=== PATIENT | male | born 1955 | race Hispanic/Latino ===

== ENCOUNTER 2017-09-27 02:12 | Observation (INO) | payer MEDICARE ==
[~2017-09-27] VITALS: Ht 165.1 cm; Wt 71.2 kg
[~2017-09-27 02:12] MED LIST: HYDR-4060 PO
[2017-09-27 02:44] LABS: BASOPHILS % (AUTO) 0.2 % (0.0-5.0); EOSINOPHILS % (AUTO) 0.4 % (0.0-8.0); HEMATOCRIT 40.5 % (42-54); LYMPHOCYTES % (AUTO) 7.9 % (21.0-51.0); MEAN CORPUSCULAR HEMOGLOBIN 30.7 pg (27.0-33.0); MEAN CORPUSCULAR HGB CONC 33.4 g/dL (32.0-36.0); MEAN CORPUSCULAR VOLUME 91.8 fL (79-99); MONOCYTES % (AUTO) 7.4 % (3.0-13.0); NEUTROPHILS % (AUTO) 84.1 % (40.0-77.0); PLATELET COUNT (AUTO) 265 K/uL (130-400); RED BLOOD CELL COUNT(AUTO) 4.41 MIL/uL (4.50-6.20); RED CELL DISTRIBUTION WIDTH 13.5 % (11.0-15.5); WHITE BLOOD COUNT (AUTO) 7.9 K/uL (4.8-10.8)
[2017-09-27 02:55] LABS: CREATININE 1.1 mg/dL (0.5-1.5); POTASSIUM 3.3 mmol/L (3.5-5.1)
[2017-09-27] MEDS ORDERED: ONDANSETRON HCL MDV 20ML 2 MG/ML VIAL ONE ×2 (02:55→04:37)
[2017-09-27] MEDS ORDERED: SODIUM CHLORIDE 0.9% 1000ML 1,000 ML IV ONE ×2 (02:55→09:50)
[2017-09-27] MEDS ORDERED: MORPHINE SULFATE 4 MG/1ML SYG ONE (02:56)
[2017-09-27 03:00] LABS: ALBUMIN 3.6 g/dL (3.5-5.0); BILIRUBIN,TOTAL 0.7 mg/dL (0.2-1.0); TOTAL PROTEIN, SERUM 6.8 g/dL (6.0-8.3)
[2017-09-27 03:21] LABS: APPEARANCE,URINE Clear (CLEAR); BILIRUBIN,URINE Negative (NEGATIVE); COLOR,URINE Yellow (YELLOW); GLUCOSE, URINE (UA) Negative (NEGATIVE); KETONES,URINE Negative (NEGATIVE); LEUKOCYTE ESTERASE ,URINE Negative (NEGATIVE); NITRATE,URINE Negative (NEGATIVE); OCCULT BLOOD,URINE Negative (NEGATIVE); PROTEIN,URINE Negative (NEGATIVE)
[2017-09-27 03:22] LABS: INR 2.07 (0.85-1.15); PARTIAL THROMBOPLASTIN TIME 34.6 SEC (26.3-35.5); PROTHROMBIN TIME 21.4 SEC (9.6-11.6)
[2017-09-27 03:55] LABS: OCCULT BLOOD STOOL SINGLE ONLY POSITIVE (NEGATIVE)
[2017-09-27] MEDS ORDERED: MORPHINE SULFATE 8 MG/ML VIAL ONE (04:53)
[2017-09-27] MEDS ORDERED: HYDRALAZINE HCL 20 MG/ML VIAL IV PRN (07:00)
[2017-09-27] MEDS ORDERED: ONDANSETRON HCL 4 MG/2 ML VIAL IV PRN (07:00)
[2017-09-27] MEDS ORDERED: ACETAMINOPHEN 325 MG TAB PO PRN ×2 (07:00)
[2017-09-27] MEDS ORDERED: POTASSIUM CHLORIDE 10% ELIXIR 20 MEQ/15 ML UDCUP PO PRN ×2 (07:00)
[2017-09-27] MEDS ORDERED: POTASSIUM CHLORIDE 20MEQ/100ML 100 ML IV PRN ×2 (07:00)
[2017-09-27] MEDS ORDERED: POTASSIUM CHLORIDE 20 MEQ ERTAB PO PRN ×2 (07:00)
[2017-09-27] MEDS ORDERED: LIDOCAINE HCL-MPF 1% 2ML VIAL IVP PRN ×2 (07:00)
[2017-09-27] MEDS ORDERED: MORPHINE SULFATE 2 MG/ML 1ML SYG IV PRN (07:00)
[2017-09-27] MEDS ORDERED: METRONIDAZOLE 500MG/100ML BAG 100 ML ONE (07:16)
[2017-09-27] MEDS ORDERED: DOXYCYCLINE HYCLATE 100 MG TABLET PO ONE (07:28)
[2017-09-27] MEDS ORDERED: CEFTRIAXONE SODIUM 1 GM ONE (07:28)
[2017-09-27] MEDS ORDERED: KETOROLAC TROMETHAMINE 30MG/ML ONE (07:29)
[2017-09-27] MEDS ORDERED: SODIUM CHLORIDE 0.9% 100 ML IV ONE (07:29)
[2017-09-27] MEDS ORDERED: FAMOTIDINE/PF 20 MG/2 ML VIAL IV ONE (09:50)
[2017-09-27] MEDS ORDERED: POTASSIUM CHLORIDE 20 MEQ ERTAB PO ONE ×3 (09:50→16:10)
[2017-09-27] MEDS ORDERED: LOPERAMIDE HCL 2 MG CAP PO PRN (11:00)
[2017-09-27] MEDS ORDERED: WARF5TAB76 PO (12:31)
[2017-09-27] MEDS ORDERED: ACETAMINOPHEN 325 MG TAB ONE (14:06)
[2017-09-27] MEDS ORDERED: WARFARIN SODIUM 5 MG TAB ONE (14:12)
[2017-09-27] MEDS: SODIUM CHLORIDE 0.9% 1000ML 1,000 ML IV SCH (19:29)
[2017-09-27 19:45] VITALS: BP 135/75
[2017-09-27] MEDS: FAMOTIDINE/PF 20 MG/2 ML VIAL IV SCH (20:48)
[2017-09-27] MEDS ORDERED: TEMA30CA PO (21:01)
[2017-09-27] MEDS ORDERED: DOCU100T PO (21:01)
[2017-09-27] MEDS: METRONIDAZOLE 500MG/100ML BAG 100 ML IV SCH (22:05)
[2017-09-27 23:55] VITALS: BP 115/59
[2017-09-28 04:00] VITALS: BP 105/56
[2017-09-28 06:03] LABS: HEMATOCRIT 37.9 % (42-54); MEAN CORPUSCULAR HEMOGLOBIN 32.5 pg (27.0-33.0); MEAN CORPUSCULAR HGB CONC 35.1 g/dL (32.0-36.0); MEAN CORPUSCULAR VOLUME 92.5 fL (79-99); PLATELET COUNT (AUTO) 257 K/uL (130-400); RED CELL DISTRIBUTION WIDTH 13.7 % (11.0-15.5)
[2017-09-28] MEDS: SODIUM CHLORIDE 0.9% 1000ML 1,000 ML IV SCH (06:07)
[2017-09-28 06:08] LABS: INR 2.39 (0.85-1.15); PARTIAL THROMBOPLASTIN TIME 35.7 SEC (26.3-35.5); PROTHROMBIN TIME 24.7 SEC (9.6-11.6)
[2017-09-28 06:11] LABS: POTASSIUM 4.1 mmol/L (3.5-5.1)
[2017-09-28] MEDS: METRONIDAZOLE 500MG/100ML BAG 100 ML IV SCH (06:22)
[2017-09-28 08:00] VITALS: BP 122/68
[2017-09-28] MEDS ORDERED: MORPHINE SULFATE 4 MG/1ML SYG ONE ×2 (08:18→15:38)
[2017-09-28] MEDS: FAMOTIDINE/PF 20 MG/2 ML VIAL IV SCH (08:49)
[2017-09-28 12:16] VITALS: BP 116/64
[2017-09-28 16:18] VITALS: BP 111/60
[2017-09-28] MEDS ORDERED: WARFARIN SODIUM 5 MG TAB PO SCH (17:00)
== END 2017-09-28 16:50 | disposition home or self-care (01) ==
LOC: EDH 02:12 → EDHIP 06:40 → 4CH 19:45
PROVIDERS: ADMIT Internal Medicine; ATTEND Internal Medicine
DX: K52.9 Noninfective gastroenteritis and colitis, unspecified (principal); D68.59 Other primary thrombophilia; E87.6 Hypokalemia; E86.0 Dehydration; Z90.79 Acquired absence of other genital organ(s); Z85.46 Personal history of malignant neoplasm of prostate; Z86.718 Personal history of other venous thrombosis and embolism; Z79.01 Long term (current) use of anticoagulants
CPT/HCPCS: 36415 ×2; 74176; 80048; 80053; 81003; 82150; 82270; 83690; 85025; 85027; 85610 ×2; 85730 ×2; 87046; 87177; 87205; 87324; 87507; 93005; 96365; 96366; 96375; 96376; 99285; G0378 ×34; J0696; J1885; J2270 ×4; J3490 ×6; J7030 ×3

== ENCOUNTER 2019-05-05 13:18 | Emergency (ER) | payer MEDICARE ==
[~2019-05-05 13:18] MED LIST changes: +DOCU100T PO; +TEMA30CA PO; +WARF5TAB76 PO
[2019-05-05 13:49] LABS: BASOPHILS % (AUTO) 0.3 % (0.0-5.0); EOSINOPHILS % (AUTO) 1.1 % (0.0-8.0); HEMATOCRIT 39.7 % (42-54); LYMPHOCYTES % (AUTO) 7.7 % (21.0-51.0); MEAN CORPUSCULAR HEMOGLOBIN 30.2 pg (27.0-33.0); MEAN CORPUSCULAR HGB CONC 33.5 g/dL (32.0-36.0); MONOCYTES % (AUTO) 6.6 % (3.0-13.0); NEUTROPHILS % (AUTO) 83.2 % (40.0-77.0); PLATELET COUNT (AUTO) 297 K/uL (130-400); RED BLOOD CELL COUNT(AUTO) 4.41 MIL/uL (4.50-6.20); RED CELL DISTRIBUTION WIDTH 14.8 % (11.0-15.5); WHITE BLOOD COUNT (AUTO) 11.2 K/uL (4.8-10.8)
[2019-05-05 13:58] LABS: CREATININE 1.3 mg/dL (0.5-1.5); POTASSIUM 3.9 mmol/L (3.5-5.1)
[2019-05-05 13:58] LABS: APPEARANCE,URINE Clear (CLEAR); BILIRUBIN,URINE Negative (NEGATIVE); COLOR,URINE Yellow (YELLOW); GLUCOSE, URINE (UA) Negative (NEGATIVE); KETONES,URINE Negative (NEGATIVE); LEUKOCYTE ESTERASE ,URINE Negative (NEGATIVE); NITRATE,URINE Negative (NEGATIVE); OCCULT BLOOD,URINE Negative (NEGATIVE); PROTEIN,URINE Negative (NEGATIVE)
[2019-05-05 14:06] LABS: AMPHET/METH SCREEN,URINE NEGATIVE (NEGATIVE); BARBITURATE SCREEN, URINE NEGATIVE (NEGATIVE); BENZODIAZEPINES SCREEN,URINE NEGATIVE (NEGATIVE); CANNABINOID SCREEN,URINE NEGATIVE (NEGATIVE); COCAINE SCREEN,URINE NEGATIVE (NEGATIVE); OPIATE SCREEN,URINE NEGATIVE (NEGATIVE); PHENCYCLIDINE SCREEN,URINE NEGATIVE (NEGATIVE)
[2019-05-05 14:07] LABS: ALBUMIN 3.2 g/dL (3.5-5.0); BILIRUBIN,TOTAL 0.9 mg/dL (0.2-1.0); TOTAL PROTEIN, SERUM 6.6 g/dL (6.0-8.3)
[2019-05-05] MEDS ORDERED: SODIUM CHLORIDE 0.9% 1000ML 1,000 ML IV ONE ×2 (14:47→15:27)
[2019-05-05] MEDS ORDERED: LORAZEPAM 2 MG/ML 1 ML VIAL ONE (15:33)
[2019-05-05 17:38] LABS: INR 2.91 (0.85-1.15); PROTHROMBIN TIME 29.3 SEC (9.6-11.6)
== END 2019-05-05 17:59 | disposition home or self-care (01) ==
LOC: EDH 13:18
DX: R06.4 Hyperventilation (principal); R25.2 Cramp and spasm; I10 Essential (primary) hypertension; Z86.718 Personal history of other venous thrombosis and embolism; Z87.891 Personal history of nicotine dependence
CPT/HCPCS: 36415; 71045; 80053; 80305; 81003; 83735; 84484 ×2; 85025; 85610; 85730; 87804 ×2; 93005; 96374; 99285; J2060; J7030 ×2

== ENCOUNTER 2023-09-03 21:29 | Emergency (ER) | payer MEDICARE, OTHER ==
[~2023-09-03] VITALS: Ht 165.1 cm; Wt 61.2 kg
[~2023-09-03 21:29] MED LIST changes: +WARF5TAB PO; -WARF5TAB76 PO
[2023-09-03 21:54] VITALS: BP 153/76; PULSE 82; RESP 16; O2SAT 98
[2023-09-03] MEDS: MORPHINE 2 MG SYG IM ONE (22:45)
== END 2023-09-03 23:37 | disposition home or self-care (01) ==
LOC: EDH 21:29
DX: R10.9 Unspecified abdominal pain (principal); Z85.46 Personal history of malignant neoplasm of prostate
CPT/HCPCS: 99284; 51701; 96372; J2270